=== PATIENT | female | born 2000 | race Hispanic/Latino ===

== ENCOUNTER 2024-09-01 21:36 | Emergency (ER) | payer SELFPAY ==
[2024-09-01 21:54] VITALS: BP 115/74
[2024-09-01 22:12] LABS: % Basophils 0.5 % (0-2); % Eosinophils 1.7 % (0-6); % Immature Granulocytes 0.1 % (0-0.5); % Lymphocytes 38.6 % (20.5-51.1); % Monocytes 7.3 % (1.7-9.3); % Neutrophils 51.8 % (42.2-75.2); Absolute Eosinophils 0.1 10^3/uL (0-0.7); Absolute Lymphocytes 2.9 10^3/uL (1.2-3.4); Absolute Monocytes 0.6 10^3/uL (0.1-0.6); Absolute Neutrophils 3.9 10^3/uL (1.4-6.5); Hematocrit 30.2 % (37.0-47.0); Hemoglobin 8.8 g/dL (12.0-16.0); Mean Corp Hgb Conc. 29.1 g/dL (33.0-37.0); Mean Corpuscular Hgb 19.8 pg (27.0-31.0); Mean Platelet Volume 9.2 fL (7.4-10.4); Nucleated Red Blood Cells % 0 %; Platelet Count 321 10^3/uL (130-400); Red Blood Cell Count 4.44 10^6/uL (4.20-5.40); Red Cell Dist. Width 18.4 % (11.5-14.5); White Blood Cell Count 7.5 10^3/uL (4.8-10.8)
[2024-09-01 22:25] LABS: HCG, Serum Qualitative Screen Negative
[2024-09-01 22:28] LABS: ALT (SGPT) < 10 U/L (0-35); AST (SGOT) 19 U/L (14-36); Albumin 4.7 g/dl (3.5-5.0); Alkaline Phosphatase 62 U/L (38-126); Blood Urea Nitrogen 11 mg/dl (7-17); Calcium 9.1 mg/dl (8.4-10.2); Carbon Dioxide 22 mmol/L (22-30); Chloride 103 mmol/L (98-107); Glucose 97 mg/dl (70-99); Sodium 137 mmol/L (135-145); Total Bilirubin 0.4 mg/dl (0.2-1.3); Total Protein 7.7 g/dl (6.3-8.2); eGFR > 60.00
[2024-09-01 22:29] LABS: Lipase 142 U/L (23-300)
[2024-09-02 03:45] VITALS: BP 106/58
--- NOTE | 2024-09-02 04:09 | ED.GENMED ---
History of Present Illness
General
Chief Complaint: Abdominal Pain
Source: patient
Time Seen by Provider: 09/02/24 03:56
History of Present Illness
History of Present Illness:
24-year-old female presents to the emergency room complaining of right lower abdominal pain. History obtained using language line spout tender. Patient states the pain has been present for 3 months. It waxes and wanes in intensity. The pain was
significant for 5 minutes today prompting her visit to the emergency room. Patient has an IUD. He has been 1 previous with 1 child. No fever or chills. No dysuria or frequency. No current abnormal vaginal discharge.
Phy Exam
Physical Exam
Physical Exam:
General: Awake, Alert, Oriented X3. No acute distress.
Vitals: unremarkable
Head: Atraumatic
Eyes: Pupils equal, EOMI
Throat: Airway intact, no exudates
Neck: Trachea midline
Lungs: Clear and equal b/l
Heart: Regular rate, no murmurs
Abd: Soft, mild right lower abdominal pain, no rebound, No pulsatile mass
Neuro: Nonfocal
Skin: Warm, dry, no rash
Extremities: pulses equal b/l, no edema
Course
Orders/Labs/Results
Orders:
Orders
09/01/24 22:02
Test Result ONCE
09/01/24 22:06
CBC/With Diff [Complete Blood Count/With Diff] Urgent
CMP [Comprehensive Metabolic Panel] Urgent
Lipase Urgent
, Serum Qualitative Screen [HCG, Serum Qualitative Screen] Urgent
09/02/24 04:08
US Pelvis Only (non-obstetric) Urgent
Comment:
Reason For Exam: right pelvic pain
09/02/24 04:09
Acetaminophen [Tylenol] 1,000 mg PO NOW STA
09/02/24 05:40
Urinalysis Reflex To Culture Urgent
Specimen Description:
Date Specimen was Collected: 09/02/24
Time Specimen was Collected: 05:33
Urine Microscopic Reflex Cult Urgent
Chlamydia/GC by PCR Urgent
KYRIE Source: Urine
Specimen Description:
Source:: URINE
Date Specimen was Collected: 09/02/24
Time Specimen was Collected: 05:33
Urine Culture Urgent
KYRIE Source: U
Specimen Description:
Date Specimen was Collected: 09/02/24
Time Specimen was Collected: 05:33
Abnormal Lab Results
09/01/24 09/02/24
22:06 05:40
Hgb 8.8 L g/dL
(12.0-16.0)
Hct 30.2 L %
(37.0-47.0)
MCV 68.0 L fL
(81.0-99.0)
MCH 19.8 L pg
(27.0-31.0)
MCHC 29.1 L g/dL
(33.0-37.0)
RDW 18.4 H %
(11.5-14.5)
Ur Occult Blood Reflex 4+ A
(Negative)
Urine RBC 3-6 A /HPF
(0-2)
Urine Bacteria (Reflex) Moderate A
(Negative)
09/01/24 22:06
09/01/24 22:06
Vital Signs
Initial and Last Documented VS:
Initial Vital Signs
Temp Pulse Resp BP Pulse Ox
98.4 F 80 20 115/74 100
09/01/24 21:54 09/01/24 21:54 09/01/24 21:54 09/01/24 21:54 09/01/24 21:54
Last Documented Vital Signs
Temp Pulse Resp BP Pulse Ox
98.4 F 78 18 100/57 99
09/01/24 21:54 09/02/24 06:58 09/02/24 07:00 09/02/24 06:58 09/02/24 06:58
*Radiology
Radiology exam reviewed: radiology read reviewed
*Pulse Oximetry
Patient hypoxic: no
*Critical Care Note
Total Time (30-74mins, 75-104mins- exclusive of procedures): Not Applicable
ED Attending Note
-
Portions of this chart may have been created with voice recognition software.� Occasional wrong word or��sound alike� substitutions may have occurred due to the inherent limitations of voice recognition software.
Discharge Plan
Departure
Patient Disposition: Home (Routine Discharge)
Date of Disposition: 09/02/24
Time of Disposition: 07:03
Patient with high blood pressure during this ER visit?: No
Condition: Good
Discharge Problem:
Dysmenorrhea
Instructions: Menstrual Cramps (DC)
Prescriptions:
No Action
No Current Medications
0
Referrals:
[facility] [Outside]
NONE,* [Family Provider] -
Activity Restrictions/Additional Instructions:
I believe your pelvic pain is related to cramps in your uterus. Your blood work and ultrasound are normal. It is safe you to be discharged home and follow-up as an outpatient. I given you contact information for the [facility].
Interventions
Interventions:
*Risk Screen - Suicide Last Done: 09/01/24 21:54
*General Assessment Last Done: 09/01/24 21:54
*Neglect/Abuse Screening Last Done: 09/01/24 21:54
ED- Fall Risk Assessment Last Done: 09/02/24 04:00
*ED COVID-19 Vaccine History Last Done: 09/02/24 06:04
OU-Eqzrlg-Tirudnigca Assessment Last Done: 09/02/24 04:00
Discharge Date and Time
Print Language: CAPE VERDE[place]
[2024-09-02] MEDS: TYLENOL 1000 MG PO (04:14)
[2024-09-02 05:48] LABS: Urine Albumin Negative (Neg - Trace); Urine Bilirubin Negative (Negative); Urine Character Clear (Clear); Urine Color Yellow; Urine Glucose Negative (Negative); Urine Ketone Negative (Negative); Urine Leukocyte Negative (Negative); Urine Nitrite Negative (Negative); Urine Occult Blood 4+ (Negative); Urine Urobilinogen Negative (Neg - 1+)
[2024-09-02 06:12] LABS: Urine Bacteria Moderate (Negative); Urine Squamous Cell >30 /LPF (Few); Urine White Cell 0-2 /HPF (0-5)
[2024-09-02 06:58] VITALS: BP 100/57
== END 2024-09-02 07:23 | disposition home or self-care (01) ==
LOC: EMR 21:36
PROVIDERS: Emergency Medicine; EMERGENCY PHYSICIAN Emergency Medicine
DX: N94.6 Dysmenorrhea, unspecified (principal)
CPT/HCPCS: 99284; 76856; 80053; 81003; 81015; 83690; 84703; 85025; 87086; 87491; 87591